=== PATIENT | male | born 1990 | race Caucasian/White ===

== ENCOUNTER 2017-10-26 17:23 | Emergency (ER) | payer OTHER ==
[~2017-10-26] VITALS: Ht 188 cm; Wt 82.1 kg
[2017-10-26 18:20] VITALS: Ht 188 cm; Wt 82.1 kg
[2017-10-26 21:10] LABS: microscopic required? YES; urine erythrocyte NEGATIVE (NEGATIVE)
[2017-10-26 21:12] LABS: PLATELET COUNT 168 x10^3mcL (130-400)
[2017-10-26 21:17] LABS: BASOPHIL % 2.6 % (0-2); RED CELL DISTRIBUTION WIDTH 15.1 % (11.5-14.5)
[2017-10-26 21:23] LABS: AMPHETAMINE QUAL UR NONE DETECTED (NEG <=1000)
[2017-10-26 21:26] LABS: CALCIUM 8.7 mg/dL (8.5-10.1); CHLORIDE SERUM 105 mmol/L (98-107); CREATININE SERUM 1.1 mg/dL (0.7-1.3); GFR1 > 60 mL/min; GLUCOSE SERUM 130 mg/dL (74-106); POTASSIUM SERUM 3.7 mmol/L (3.5-5.1); SODIUM SERUM 144 mmol/L (136-145)
[2017-10-26 21:39] LABS: ALBUMIN 3.5 g/dL (3.4-5.0); ALKALINE PHOSPHATASE 51 U/L (46-116); ALT/SGPT 66 U/L (16-63); AST/SGOT 32 U/L (15-37); BILIRUBIN TOTAL 1.3 mg/dL (0.20-1.00); LIPASE 171 IU/L (73-393); T4(THYROXINE) 6.4 ug/dL (4.7-13.3)
[2017-10-26 21:41] LABS: AMYLASE 20 U/L (25-115); CHOLESTEROL 111 mg/dL (<200); HDL CHOLESTEROL 63 mg/dL (40-60)
[2017-10-26 23:09] VITALS: BP 131/88
== END 2017-10-26 23:00 | disposition left against medical advice (07) ==
LOC: ED 17:23
PROVIDERS: Emergency Medicine
DX: K92.0 Hematemesis (principal); F12.99 Cannabis use, unspecified with unspecified cannabis-induced disorder; D72.829 Elevated white blood cell count, unspecified
CPT/HCPCS: 83880; 87804; J2405; J3490; J7030